=== PATIENT | male | born 1995 | race Caucasian/White ===

== ENCOUNTER 2017-11-08 10:32 | Emergency (ER) | payer OTHER ==
[~2017-11-08] VITALS: Ht 185.4 cm; Wt 142.0 kg
[2017-11-08 10:51] VITALS: BP 152/63; PULSE 80; RESP 17; TEMP 98.4; O2SAT 100
--- NOTE | 2017-11-08 12:19 | RADRPT ---
EXAM DATE/TIME: 11/08/2017 11:50 [place] COMPARISON: No previous studies available for comparison. INDICATIONS : Left lateral hand pain and swelling. Patient had his hand smashed in pliers today. MEDICAL HISTORY : None. SURGICAL HISTORY : None. ENCOUNTER: Initial ACUITY: 1 day PAIN SCORE: 8/10 LOCATION: Left lateral hand. FINDINGS: Three view examination of the left hand in a medial fiberglass splint demonstrates no soft tissue sw elling, dislocation, or fracture. The carpal bones appear intact. The interphalangeal and metacarp ophalangeal joints are intact. Bony mineralization is normal. CONCLUSION: 1. No evidence of fracture or dislocation. Jarad Suazo MD on November 08, 2017 at 12:17 Board Certified Radiologist. This report was verified electronically.
--- NOTE | 2017-11-08 12:46 | PD ---
HPI Chief Complaint: Injury Time Seen by Provider: 12:26 Travel History International Travel<30 days: No Contact w/Intl Traveler<30days: No Traveled to known affect area: No History of Present Illness HPI 21-year-old man, presents to the emergency department with left hand pain. He states he was working with a pair of pliers when the pliers sort of bounce back and the teeth the pliers clipped and clamped his fourth and fifth finger over the distal phalanx of the fifth finger and the DIP of the fourth finger of the left hand. He states the fingers feel numb and he has trouble moving him. Minimal pain. There is a blood blister on the tip of the fifth finger. No other complaints for no other medical history. Patient is right-handed. History Past Medical History Medical History: Denies Significant Hx Tetanus Vaccination: < 5 Years Influenza Vaccination: Yes Past Surgical History Surgical History: No Previous Surgery Social History Alcohol Use: No Tobacco Use: Yes (1 CAN DIP DAILY) Allergies-Medications (Allergen,Severity, Reaction): Coded Allergies: No Known Allergies (Unverified , 11/08/17) Review of Systems Except as stated in HPI: all other systems reviewed are Neg Physical Exam Narrative GENERAL: 21-year-old man, well-appearing, no acute distress. SKIN: Warm and dry. CARDIOVASCULAR: Warm and well perfused. RESPIRATORY: Normal rate and effort. MUSCULOSKELETAL: Focused examination of the left hand reveals no obvious swelling deformity or instability. For the fifth fingers are held slightly flexed in position of function. Patient resists extending or flexing him further. Describes decreased sensation to the distal fingertips. Both hands are a little bit cool and cold. Capillary refill on the left fourth and fifth fingertips are about 3 seconds or so. There is no bony tenderness. Patient reluctant to move all the fingers but he has full range of motion of the fourth finger, he is reluctant to flex the fifth finger completely even with prompting. On isolated testing there is some general weakness in both fingers and seems to be due to pain, but no isolated tendon injuries that I can identify. NEUROLOGICAL: Awake and alert. No gross deficits. Data Data Last Documented VS Vital Signs Date Time Temp Pulse Resp B/P (MAP) Pulse Ox O2 Delivery O2 Flow Rate FiO2 11/08/17 10:51 98.4 80 17 152/63 (92) 100 Orders Orders Hand, Complete ([id number]) (11/08/17 ) [employer] Request For Service (11/08/17 12:39) [facility] Medical Decision Making Medical Screen Exam Complete: Yes Emergency Medical Condition: Yes Interpretation(s) Left hand x-ray negative Differential Diagnosis Finger injury, neuropraxia, crush injury, other Narrative Course Medical decision making This 21-year-old man presents emerged from after para pliers forcefully clipped his left fourth and fifth fingers. He looks otherwise well. He has some numbness and is reluctant to move him. I think there may be some neuropraxia. There is no significant bony injury. I cannot isolate any individual tendon injuries and his reluctance to bend and flex it seems more generalized. Nonetheless, will place in a splint, recommend follow-up with hand surgery within the next week for repeat assessment. Diagnosis Primary Impression: Injury of left hand Referrals: Vania Ritter MD 1 week Additional Instructions: Keep splint clean and dry. Follow-up with hand surgery within the next week for repeat assessment. Return to the emergency department for any worsening pain numbness swelling or any other new or worsening symptoms. Med/Other Pt SpecificInfo: No Change to Meds Disposition: 01 DISCHARGE HOME Condition: Stable Luis Eduardo Dow MD Nov 08, 2017 12:46
== END 2017-11-08 13:53 | disposition home or self-care (01) ==
LOC: EDBD 10:32 → NEPD 10:32
DX: S69.92XA Unspecified injury of left wrist, hand and finger(s), initial encounter (principal); R20.0 Anesthesia of skin; Z72.0 Tobacco use; X58.XXXA Exposure to other specified factors, initial encounter; Y99.0 Civilian activity done for income or pay
CPT/HCPCS: 29125; 73130